=== PATIENT | male | born 1970 | race Caucasian/White ===

== ENCOUNTER 2025-08-27 19:22 | Emergency (ER) | payer OTHER ==
[~2025-08-27] VITALS: Ht 190.5 cm; Wt 96.5 kg
[2025-08-27 19:23] VITALS: BP 149/87; PULSE 83; RESP 16; O2SAT 100
[2025-08-27] MEDS ORDERED: HYDR-3965 PO (20:21)
--- NOTE | 2025-08-27 20:22 | Physician Documentation ---
HPI ~ General Chief Complaint: Tooth Problem Stated Complaint: TOOTH PAIN Time Seen by MD: 20:02 History of Present Illness HPI Comment 55-year-old male presents to the ED with a complaint of right lower tooth pain. States he is currently on clindamycin from his dentist and has not appointment tomorrow. states that it he has been taking the medications for a proximally four days states that the pain has gotten worse. Denies any fevers or nausea vomiting Medication Reconciliation Allergies: Coded Allergies: amoxicillin (Unverified Adverse Reaction, Mild, dizziness, 08/27/25) clavulanic acid (Unverified Adverse Reaction, Mild, dizziness, 08/27/25) Review of Systems All Other Systems at this time: Reviewed and Negative ROS As stated above in the HPI, otherwise all systems are reviewed and negative. Physical Exam Vital Signs: Temperature: 98.3, Source: Oral, Heart Rate: 83, Respiratory Rate: 16, BP: 149/87, Pulse Oximetry: 100, Weight: 96.500 Oxygen Flow Rate: 0 Physical Exam General: Alert, no apparent distress. HEENT: PERRL, EOMI, no injection, moist mucous membranes. Notable tooth caries in the affected region in the bottom right molars no obvious abscess Psychiatric: Normal mood and affect. Skin: Normal color, warm and dry. No edema, no ecchymosis. Progress Results/Orders Results/Orders Vital Signs 08/27/25 19:23 Temp 98.3 Pulse 83 Resp 16 B/P (MAP) 149/87 Pulse Ox 100 O2 Flow Rate 0 Medical Decision Making Additional information obtaine: old records Findings I do not see any reason to change the antibiotic that the patient is on as it seems appropriate. Based on his symptoms I am going to have him follow up with the his dentist .I will send him home with some pain medication Differential Dx:Considerations: Include: Alveolar fracture, Alveolar osteitis, ANUG, Facial Cellulitis, Periapical abscess, Peridontal abscess, Post-extraction bleeding, Pulpitis, Tooth avulsion, Tooth eruption, Tooth Fracture, Trigeminal neuralgia, Tooth subluxation, Other Departure Disposition: 01 HOME / SELF CARE / HOMELESS Impression: Primary Impression: Toothache Condition: Stable Discharge Instructions: Dental Pain, Dental Caries, Adult Referrals: NO PRIMARY CARE PROVIDER (PCP) Prescriptions Hydrocodone Bit/Acetaminophen 5/325 MG ([place] 5/325 MG) 5 Mg/325 Mg Tablet 1 TAB PO Q6H PRN for pain, #14 TAB Prov: VIC MCCORMICK [employer] 08/27/25 Education Educated: Patient Educated regarding: diagnosis Signature Scribe Signature: g Attestation: Scribed for Vic Mccormick Lead Project Engineer by Vic Mccormick - MATT . 08/27/25 20:22 VIC MCCORMICK NP Aug 27, 2025 20:22
[2025-08-27] MEDS: HYDROcodone/acetaminophen 5mg/325mg tablet PO ONE (21:17)
[2025-08-27 21:19] VITALS: TEMP 98
== END 2025-08-27 21:20 | disposition home or self-care (01) ==
LOC: ER 19:23
DX: K08.89 Other specified disorders of teeth and supporting structures (principal); Z88.1 Allergy status to other antibiotic agents
CPT/HCPCS: 99283